=== PATIENT | male | born 1955 | race Hispanic/Latino ===

== ENCOUNTER 2021-07-14 06:14 | Day surgery (SDC) | payer OTHER ==
[2021-07-12 09:41] LABS: CREATININE 1.4 mg/dL (0.5-1.5); POTASSIUM 4.4 mmol/L (3.5-5.1)
[2021-07-13 09:46] VITALS: BP 156/82
[~2021-07-14] VITALS: Ht 167.6 cm; Wt 112.7 kg
[2021-07-14] VITALS (16 sets, daily range): BP systolic 135–158; BP diastolic 72–92
[~2021-07-14 06:14] MED LIST: GABA-529 PO; LISI20TA24 PO; PRAZOSIN PO; TRAZ-187 PO; [UNRECOGNIZED DRUG - OTHER] PO
[2021-07-14] MEDS ORDERED: LACTATED RINGERS 1000ML 1,000 ML IV ONE (06:27)
[2021-07-14] MEDS ORDERED: CLINDAMYCIN IVPB 900MG/50ML 50 ML IV ONE (06:29)
[2021-07-14] MEDS ORDERED: CEFAZOLIN SODIUM 1 GM VIAL IVP ONE (08:00)
[2021-07-14] MEDS ORDERED: PROPOFOL 10 MG/ML 20ML VIAL IV ONE (08:34)
[2021-07-14] MEDS ORDERED: MIDAZOLAM HCL 1 MG/ML 2ML VIAL ONE (08:34)
[2021-07-14] MEDS ORDERED: LIDOCAINE PF 100MG/5ML (2%) SYRINGE 5ML ONE (08:34)
[2021-07-14] MEDS ORDERED: FENTANYL CITRATE PF 50 MCG/1 ML 2ML VIAL ONE (08:43)
[2021-07-14] MEDS ORDERED: SUCCINYLCHOLINE CHLORIDE 20 MG/ML 10 ML VIAL ONE (08:47)
[2021-07-14] MEDS ORDERED: ROCURONIUM 10MG/1ML SYR 10 MG/ML ML ONE (08:47)
[2021-07-14] MEDS ORDERED: EPHEDRINE SULFATE 50 MG/ML AMPULE ONE (08:54)
[2021-07-14] MEDS ORDERED: NEOSTIGMINE 5MG/5ML SYR IV ONE (09:25)
[2021-07-14] MEDS ORDERED: ONDANSETRON 4MG INJ ONE (09:26)
[2021-07-14] MEDS ORDERED: GLYCOPYRROLATE 1 MG/5 ML SYRINGE ONE (09:26)
[2021-07-14] MEDS ORDERED: ACET-2079 PO (09:46)
[2021-07-14] MEDS ORDERED: IBUP-2070 PO (09:46)
[2021-07-14] MEDS ORDERED: CLIN-141 PO (09:46)
[2021-07-14] MEDS ORDERED: KETOROLAC 30MG VIAL (30MG/ML) ONE (09:55)
== END 2021-07-14 11:22 | disposition home or self-care (01) ==
LOC: DAH 06:14
PROVIDERS: ATTEND Orthopaedic Surgery
DX: M23.321 Other meniscus derangements, posterior horn of medial meniscus, right knee (principal); J44.9 Chronic obstructive pulmonary disease, unspecified; I10 Essential (primary) hypertension; E66.9 Obesity, unspecified; Z98.890 Other specified postprocedural states; Z88.8 Allergy status to other drugs, medicaments and biological substances; Z88.0 Allergy status to penicillin; Z87.891 Personal history of nicotine dependence; Z82.49 Family history of ischemic heart disease and other diseases of the circulatory system; Z83.3 Family history of diabetes mellitus; Z80.9 Family history of malignant neoplasm, unspecified
CPT/HCPCS: 29881; 36415; 80048; 87635; A4215; A4221; A4222; A4223; A4649; A4663; A4930; A5120; A6223; C9803; J0330; J1885; J2001; J2250; J2405; J2704; J2710; J3010; J3490 ×3; J7120 ×2

== ENCOUNTER 2022-03-11 02:20 | Observation (INO) | payer OTHER ==
[~2022-03-11] VITALS: Ht 167.6 cm; Wt 107.2 kg
[~2022-03-11 02:20] MED LIST changes: +ASPI-1005 PO; +ATOR40TA69 PO; +CLOP-31 PO; -LISI20TA24 PO; +METO50TA9 PO; -PRAZOSIN PO
[2022-03-11 03:26] LABS: BASOPHILS % (AUTO) 0.4 % (0.0-5.0); EOSINOPHILS % (AUTO) 2.9 % (0.0-8.0); HEMATOCRIT 41.4 % (42-54); LYMPHOCYTES % (AUTO) 23.8 % (21.0-51.0); MEAN CORPUSCULAR HEMOGLOBIN 28.4 pg (27.0-33.0); MEAN CORPUSCULAR HGB CONC 32.4 g/dL (32.0-36.0); MEAN CORPUSCULAR VOLUME 87.7 fL (79-99); MONOCYTES % (AUTO) 6.3 % (3.0-13.0); NEUTROPHILS % (AUTO) 66.3 % (40.0-77.0); PLATELET COUNT (AUTO) 336 K/uL (130-400); RED BLOOD CELL COUNT(AUTO) 4.72 MIL/uL (4.50-6.20); RED CELL DISTRIBUTION WIDTH 12.5 % (11.0-15.5); WHITE BLOOD COUNT (AUTO) 6.9 K/uL (4.8-10.8)
[2022-03-11 03:34] LABS: B-TYPE NATRIURETIC PEPTIDE 422 pg/mL (0-100); CREATININE 1.2 mg/dL (0.5-1.5); POTASSIUM 4.5 mmol/L (3.5-5.1); TOTAL PROTEIN, SERUM 6.3 g/dL (6.0-8.3)
[2022-03-11] MEDS ORDERED: HYDRALAZINE 20MG/ML VIAL IV ONE (04:00)
[2022-03-11] MEDS ORDERED: ASPIRIN 81MG CHEW TAB ONE (04:34)
[2022-03-11] MEDS ORDERED: ASPIRIN 81MG CHEW TAB PO ONE (05:00)
[2022-03-11] MEDS ORDERED: ENOXAPARIN SODIUM 1 MG/KG SQ STA (05:32)
[2022-03-11] MEDS ORDERED: FUROSEMIDE 40MG VIAL IV STA (05:48)
[2022-03-11] MEDS ORDERED: FUROSEMIDE 20MG VIAL ONE (05:59)
[2022-03-11] MEDS ORDERED: CLINDAMYCIN 150 MG CAP PO ONE (06:00)
[2022-03-11] MEDS ORDERED: SULFAMETHOX-TMP DS 800/160 TAB PO SCH (06:00)
[2022-03-11] MEDS ORDERED: MORPHINE 2 MG SYG IVP PRN (07:30)
[2022-03-11] MEDS ORDERED: NITROGLYCERIN 0.4 MG SL TAB SL PRN (07:30)
[2022-03-11] MEDS ORDERED: ESCI-8 PO (07:55)
[2022-03-11] MEDS ORDERED: GABA-533 PO (07:55)
[2022-03-11] MEDS ORDERED: IPRATROPIUM 0.5 MG/2.5 ML INH IH PRN (08:00)
[2022-03-11 08:44] LABS: PROTHROMBIN TIME 10.9 SEC (9.6-11.6)
[2022-03-11 08:45] LABS: APPEARANCE,URINE CLEAR (CLEAR); BILIRUBIN,URINE NEGATIVE (NEGATIVE); COLOR,URINE COLORLESS (YELLOW); GLUCOSE, URINE (UA) NEGATIVE (NEGATIVE); KETONES,URINE NEGATIVE (NEGATIVE); LEUKOCYTE ESTERASE ,URINE NEGATIVE Leu/uL (NEGATIVE); NITRATE,URINE NEGATIVE (NEGATIVE); OCCULT BLOOD,URINE NEGATIVE (NEGATIVE); PROTEIN,URINE NEGATIVE (NEGATIVE); UROBILINOGEN,URINE 0.2 mg/dL (0.2-1.0)
[2022-03-11 08:46] LABS: PARTIAL THROMBOPLASTIN TIME 25.5 SEC (26.3-35.5)
[2022-03-11 08:56] LABS: AMPHET/METH SCREEN,URINE NEGATIVE (NEGATIVE); BARBITURATE SCREEN, URINE NEGATIVE (NEGATIVE); BENZODIAZEPINES SCREEN,URINE NEGATIVE (NEGATIVE); CANNABINOID SCREEN,URINE NEGATIVE (NEGATIVE); COCAINE SCREEN,URINE NEGATIVE (NEGATIVE); OPIATE SCREEN,URINE NEGATIVE (NEGATIVE); PHENCYCLIDINE SCREEN,URINE NEGATIVE (NEGATIVE)
[2022-03-11] MEDS: PANTOPRAZOLE 40 MG TAB DR PO SCH (09:14)
[2022-03-11] MEDS: ASPIRIN 81 MG EC TAB PO SCH (09:14)
[2022-03-11] MEDS: Vitamin B Complex/Vit C/Folic Acid PO SCH (09:14)
[2022-03-11 09:15] LABS: CRP QUANTITATIVE < 2.00 mg/L (0.00-9.0)
[2022-03-11] MEDS: CLOPIDOGREL 75MG TAB PO SCH (09:15)
[2022-03-11 09:16] LABS: POTASSIUM 3.9 mmol/L (3.5-5.1)
[2022-03-11 09:17] LABS: CREATININE 1.2 mg/dL (0.5-1.5); MAGNESIUM 1.8 mg/dL (1.80-2.40)
[2022-03-11] MEDS ORDERED: SODIUM CHLORIDE 3% FOR INHALATION 4 ML/AMP VIAL.NEB IH ONE ×3 (09:37→18:31)
[2022-03-11] MEDS: POTASSIUM CHLORIDE 10MEQ SR TAB PO SCH (10:05)
[2022-03-11] MEDS: MAGNESIUM 2GM PREMIX 50ML 50 ML IV SCH ×2 (10:06→22:56)
[2022-03-11] MEDS: METOPROLOL SUCCINATE 25 MG TAB.SR.24H PO SCH (10:06)
[2022-03-11] MEDS ORDERED: FUROSEMIDE 20MG VIAL IV SCH (12:00)
[2022-03-11 12:09] VITALS: BP 148/87
[2022-03-11 15:54] VITALS: BP 122/84
[2022-03-11 16:00] VITALS: BP 148/87
[2022-03-11] MEDS ORDERED: NON-FORMULARY MEDICATION 1 EACH (Gabapentin 300 MG) PO PRN (18:00)
[2022-03-11 20:00] VITALS: BP 115/75
[2022-03-11] MEDS: FUROSEMIDE 40MG VIAL IV SCH (20:23)
[2022-03-11] MEDS: GABAPENTIN 100 MG CAPSULE PO SCH (20:24)
[2022-03-11] MEDS: HEPARIN 5,000 UNIT VIAL SQ SCH (20:26)
[2022-03-11] MEDS ORDERED: TRAZODONE HCL 100 MG TABLET PO SCH (21:00)
[2022-03-11] MEDS ORDERED: ATORVASTATIN 40 MG TABLET PO SCH ×2 (21:00)
[2022-03-12] VITALS: BP 121/66
[2022-03-12] MEDS ORDERED: POTASSIUM CHLORIDE 10MEQ SR TAB PO SCH (01:00)
[2022-03-12 04:00] VITALS: BP 108/56
[2022-03-12 05:08] LABS: BASOPHILS % (AUTO) 0.4 % (0.0-5.0); EOSINOPHILS % (AUTO) 2.8 % (0.0-8.0); HEMATOCRIT 41.8 % (42-54); LYMPHOCYTES % (AUTO) 22.4 % (21.0-51.0); MEAN CORPUSCULAR HEMOGLOBIN 28.2 pg (27.0-33.0); MEAN CORPUSCULAR HGB CONC 32.5 g/dL (32.0-36.0); MEAN CORPUSCULAR VOLUME 86.7 fL (79-99); MONOCYTES % (AUTO) 7.5 % (3.0-13.0); NEUTROPHILS % (AUTO) 66.6 % (40.0-77.0); PLATELET COUNT (AUTO) 341 K/uL (130-400); RED BLOOD CELL COUNT(AUTO) 4.82 MIL/uL (4.50-6.20); RED CELL DISTRIBUTION WIDTH 12.5 % (11.0-15.5); WHITE BLOOD COUNT (AUTO) 7.8 K/uL (4.8-10.8)
[2022-03-12 05:27] LABS: ALBUMIN 2.9 g/dL (3.5-5.0); CREATININE 1.3 mg/dL (0.5-1.5); MAGNESIUM 2.3 mg/dL (1.80-2.40); POTASSIUM 4.4 mmol/L (3.5-5.1); TOTAL PROTEIN, SERUM 6.8 g/dL (6.0-8.3)
[2022-03-12 07:25] VITALS: BP 93/60
[2022-03-12] MEDS ORDERED: METOPROLOL SUCCINATE 50 MG TAB.SR.24H PO SCH (09:00)
[2022-03-12] MEDS ORDERED: CITALOPRAM 20 MG TABLET PO SCH (09:00)
[2022-03-12] MEDS ORDERED: CLOPIDOGREL 75MG TAB PO SCH (09:00)
[2022-03-12] MEDS ORDERED: ASPIRIN 81MG CHEW TAB PO SCH (09:00)
[2022-03-12] MEDS: PANTOPRAZOLE 40 MG TAB DR PO SCH (09:06)
[2022-03-12] MEDS: ASPIRIN 81 MG EC TAB PO SCH (09:06)
[2022-03-12] MEDS: Vitamin B Complex/Vit C/Folic Acid PO SCH (09:07)
[2022-03-12] MEDS: GABAPENTIN 100 MG CAPSULE PO SCH ×2 (09:07→13:38)
[2022-03-12] MEDS: CLOPIDOGREL 75MG TAB PO SCH (09:07)
[2022-03-12] MEDS: METOPROLOL SUCCINATE 25 MG TAB.SR.24H PO SCH (09:07)
[2022-03-12] MEDS: FUROSEMIDE 40MG VIAL IV SCH (09:08)
[2022-03-12] MEDS: HEPARIN 5,000 UNIT VIAL SQ SCH (09:16)
[2022-03-12] MEDS ORDERED: FUROSEMIDE 20 MG TABLET PO SCH (09:30)
[2022-03-12] MEDS: POTASSIUM CHLORIDE 10MEQ SR TAB PO SCH (10:00)
[2022-03-12 11:25] VITALS: BP 96/60
[2022-03-12] MEDS ORDERED: FURO20TA6 PO (14:23)
== END 2022-03-12 14:41 | disposition home or self-care (01) ==
LOC: EDH 02:20 → EDHIP 07:29 → INTOOBSV 07:29 → 4CH 11:49
PROVIDERS: ADMIT Hospitalist; ATTEND Hospitalist
DX: J96.01 Acute respiratory failure with hypoxia (principal); Z20.822 Contact with and (suspected) exposure to COVID-19; I11.0 Hypertensive heart disease with heart failure; I50.43 Acute on chronic combined systolic (congestive) and diastolic (congestive) heart failure; J81.1 Chronic pulmonary edema; I21.4 Non-ST elevation (NSTEMI) myocardial infarction; E78.5 Hyperlipidemia, unspecified; R79.89 Other specified abnormal findings of blood chemistry; E66.9 Obesity, unspecified; G62.9 Polyneuropathy, unspecified; F43.10 Post-traumatic stress disorder, unspecified; I25.10 Atherosclerotic heart disease of native coronary artery without angina pectoris; E78.00 Pure hypercholesterolemia, unspecified; F41.8 Other specified anxiety disorders; G47.00 Insomnia, unspecified; Z79.899 Other long term (current) drug therapy; Z87.891 Personal history of nicotine dependence; Z91.119 Patient's noncompliance with dietary regimen due to unspecified reason; Z95.5 Presence of coronary angioplasty implant and graft
CPT/HCPCS: 99291; 96365; 70450; 71045 ×2; 96366 ×2; 87635; 96375; 96376 ×2; 84443; 82550 ×2; 83735 ×3; 83874 ×2; 84484 ×3; 80053 ×2; 83880; 80305; 85025 ×2; 85610; 85730; 85651; 86140; 36415 ×2; 93005; 84145; 84132; 81003; 96372 ×2; 94664; 94640 ×3; J3475 ×2; J1940 ×4; J1644 ×2; G0378; 80048

== ENCOUNTER → 2022-04-04 | Outpatient (CLI) | payer MEDICARE, SELFPAY ==
[~2022-04-04] MED LIST changes: +ESCI-8 PO; +FURO20TA6 PO; +GABA-533 PO
[2022-04-04 13:15] LABS: CREATININE 1.2 mg/dL (0.5-1.5); POTASSIUM 4.2 mmol/L (3.5-5.1)
== END | disposition home or self-care (01) ==
LOC: LAB 09:48
PROVIDERS: ATTEND Internal Medicine Cardiovascular Disease
DX: I10 Essential (primary) hypertension (principal); I21.3 ST elevation (STEMI) myocardial infarction of unspecified site
CPT/HCPCS: 36415; 80048; 83880

== ENCOUNTER → 2022-04-26 | Outpatient (CLI) | payer OTHER | END | disposition home or self-care (01) | LOC: SHCH 12:57 | PROVIDERS: ATTEND Internal Medicine Cardiovascular Disease | DX: I11.0 Hypertensive heart disease with heart failure (principal); I50.20 Unspecified systolic (congestive) heart failure; I31.39 Other pericardial effusion (noninflammatory); I34.0 Nonrheumatic mitral (valve) insufficiency; I50.21 Acute systolic (congestive) heart failure | CPT/HCPCS: 93306 ==

== ENCOUNTER → 2022-04-28 | Outpatient (CLI) | payer OTHER ==
[~2022-04-28] MED LIST changes: +REGADENOSON 0.4 MG/5 ML PF SYG IVP SCH
== END | disposition home or self-care (01) ==
LOC: SHCH 07:53
PROVIDERS: ATTEND Internal Medicine Cardiovascular Disease
DX: I25.10 Atherosclerotic heart disease of native coronary artery without angina pectoris (principal); I11.0 Hypertensive heart disease with heart failure; I50.20 Unspecified systolic (congestive) heart failure; Z95.5 Presence of coronary angioplasty implant and graft; Z79.82 Long term (current) use of aspirin; Z79.899 Other long term (current) drug therapy; Z79.02 Long term (current) use of antithrombotics/antiplatelets
CPT/HCPCS: 78452; 96374; 93017; J2785; A9500 ×2

== ENCOUNTER 2022-10-09 10:38 | Emergency (ER) | payer MEDICARE, OTHER ==
[~2022-10-09] VITALS: Ht 167.6 cm; Wt 113.4 kg
[~2022-10-09 10:38] MED LIST changes: -REGADENOSON 0.4 MG/5 ML PF SYG IVP SCH
[2022-10-09 11:27] LABS: BASOPHILS % (AUTO) 0.4 % (0.0-5.0); EOSINOPHILS % (AUTO) 2.7 % (0.0-8.0); LYMPHOCYTES % (AUTO) 26.2 % (21.0-51.0); MEAN CORPUSCULAR HEMOGLOBIN 28.2 pg (27.0-33.0); MEAN CORPUSCULAR HGB CONC 32.9 g/dL (32.0-36.0); MEAN CORPUSCULAR VOLUME 85.6 fL (79-99); MONOCYTES % (AUTO) 6.4 % (3.0-13.0); PLATELET COUNT (AUTO) 202 K/uL (130-400); RED BLOOD CELL COUNT(AUTO) 5.61 MIL/uL (4.50-6.20); RED CELL DISTRIBUTION WIDTH 12.9 % (11.0-15.5); WHITE BLOOD COUNT (AUTO) 7.9 K/uL (4.8-10.8)
[2022-10-09 11:41] LABS: CREATININE 1.3 mg/dL (0.5-1.5); POTASSIUM 4.3 mmol/L (3.5-5.1)
[2022-10-09 11:45] LABS: ALBUMIN 3.4 g/dL (3.5-5.0)
[2022-10-09 13:06] VITALS: BP 160/98
== END 2022-10-09 13:41 | disposition home or self-care (01) ==
LOC: EDH 10:38
DX: R42 Dizziness and giddiness (principal); I10 Essential (primary) hypertension; E78.00 Pure hypercholesterolemia, unspecified; Z88.0 Allergy status to penicillin; Z79.899 Other long term (current) drug therapy
CPT/HCPCS: 36415; 71045; 80053; 83880; 84443; 84484; 85025; 93005

== ENCOUNTER 2023-01-23 13:19 | Emergency (ER) | payer OTHER ==
[~2023-01-23] VITALS: Ht 170.2 cm; Wt 114.3 kg
[~2023-01-23 13:19] MED LIST changes: -GABA-533 PO; +GABA-534 PO
[2023-01-23 14:00] LABS: HEMATOCRIT 45.6 % (42-54); MEAN CORPUSCULAR HEMOGLOBIN 28.6 pg (27.0-33.0); MEAN CORPUSCULAR HGB CONC 33.1 g/dL (32.0-36.0); MEAN CORPUSCULAR VOLUME 86.4 fL (79-99); PLATELET COUNT (AUTO) 178 K/uL (130-400); RED BLOOD CELL COUNT(AUTO) 5.28 MIL/uL (4.50-6.20); RED CELL DISTRIBUTION WIDTH 12.6 % (11.0-15.5); WHITE BLOOD COUNT (AUTO) 7.1 K/uL (4.8-10.8)
[2023-01-23 14:10] LABS: CREATININE 1.4 mg/dL (0.5-1.5); POTASSIUM 3.8 mmol/L (3.5-5.1)
[2023-01-23 14:24] LABS: BASOPHILS % (MANUAL) 1 % (0-2); EOSINOPHILS % (MANUAL) 1 % (1-6); LYMPHOCYTES % (MANUAL) 25 % (22-44); MONOCYTES % (MANUAL) 3 % (2-9); SEGMENTED NEUTROPHILS % 70 % (40-70); TOTAL CELLS COUNTED 100
[2023-01-23 14:30] LABS: MAN.DIFF COMMENT-IMPRESSION MANUAL DIFFERENTIAL; PLATELET MORPHOLOGY COMMENT ADEQUATE; WBC MORPHOLOGY SMUDGE CELLS 1+
[2023-01-23] MEDS ORDERED: KETOROLAC 15MG/ML VIAL (15MG/ML) IV ONE (15:30)
[2023-01-23] MEDS ORDERED: AZIT250T9 PO (16:22)
[2023-01-23] MEDS ORDERED: IBUP-2070 PO (16:22)
[2023-01-23] MEDS ORDERED: CEFTRIAXONE 1G VIAL IVPB ONE (16:30)
[2023-01-23] MEDS ORDERED: DEXAMETHASONE SOD PHOSPHATE 4 MG/ML 1ML VIAL IVP ONE (16:30)
[2023-01-23 16:32] VITALS: BP 135/78; PULSE 65; RESP 16; O2SAT 98
[2023-01-23 16:37] LABS: SARS-CoV-2, RNA, NAAT NEGATIVE SARS CoV-2 (NEGATIVE)
[2023-01-23 16:48] LABS: INFLUENZA TYPE A Negative For Type A (NEGATIVE); INFLUENZA TYPE B Negative For Type B (NEGATIVE)
== END 2023-01-23 16:37 | disposition home or self-care (01) ==
LOC: EDH 13:19
DX: J98.4 Other disorders of lung (principal); R06.02 Shortness of breath; E78.00 Pure hypercholesterolemia, unspecified; I10 Essential (primary) hypertension; Z79.02 Long term (current) use of antithrombotics/antiplatelets; Z79.82 Long term (current) use of aspirin; Z79.899 Other long term (current) drug therapy; Z88.0 Allergy status to penicillin; Z20.822 Contact with and (suspected) exposure to COVID-19
CPT/HCPCS: 99285; 96374; 71250; 71045; 96375; 87635; 84484; 80048; 85025; 87804 ×2; 36415; 93005; J1100; J0696; J1885

== ENCOUNTER 2024-10-30 05:36 | Day surgery (SDC) | payer OTHER ==
[2024-10-28 10:30] LABS: IMMATURE GRANULOCYTE ABSOLUTE 0.03 K/uL (0-1); NUCLEATED RED BLOOD CELLS 0.0 % (0.0-0.19); PLATELET COUNT (AUTO) 179 K/uL (130-400); RED BLOOD CELL COUNT(AUTO) 5.54 MIL/uL (4.50-6.20); RED CELL DISTRIBUTION WIDTH 12.6 % (11.0-15.5); WHITE BLOOD COUNT (AUTO) 9.7 K/uL (4.8-10.8)
[2024-10-28 10:36] LABS: APPEARANCE,URINE CLEAR (CLEAR); GLUCOSE, URINE (UA) NEGATIVE (NEGATIVE); LEUKOCYTE ESTERASE ,URINE NEGATIVE Leu/uL (NEGATIVE); NITRATE,URINE NEGATIVE (NEGATIVE); OCCULT BLOOD,URINE NEGATIVE (NEGATIVE)
[2024-10-28 10:38] LABS: CREATININE 1.3 mg/dL (0.5-1.3); GLOMERULAR FILTR. RATE CALC 60.0 mL/min (>90); GLUCOSE,RANDOM 97.0 mg/dL (70-105); SODIUM SERUM 139.0 mmol/L (136-145); UREA NITROGEN, BLOOD 20.0 mg/dL (7-18)
[2024-10-28 10:42] LABS: ADD UA MICROSCOPIC YES
[2024-10-28 10:45] LABS: INR 1.01 (0.85-1.15)
--- NOTE | 2024-10-28 10:46 | EKG ---
[facility] Test Date: 2024-10-28 Test Time: 10:18:02 Pat Name: LISSETH WILLIS Department: [facility] Room: Gender: M Telephone Directory Deliverer: [id number] : 1955 Requested By: RHIANNA GOTTI Order Number: [id number] Reading MD: Kirti Joshi Measurements Intervals [place] Rate: 56 P: 57 ND: 170 QRS: 99 QRSD: 94 T: 111 QT: 455 QTc: 451 Interpretive Statements Sinus rhythm Ventricular premature complex Probable anterolateral infarct, age indeterm Compared to ECG 01/23/2023 13:24:39 Ventricular premature complex(es) now present Myocardial infarct finding still present Electronically Signed On 10-28-2024 12:12:34 CDT by Kirti Joshi Please click the below link to view image of tracing.
[2024-10-28 10:52] VITALS: BP 151/81; PULSE 60; RESP 16; TEMP 97.9
--- NOTE | 2024-10-28 16:22 | HMCIMG ---
EXAM: CR Chest, 1 View. CLINICAL HISTORY: PRE OP COMPARISON: X-ray chest 01/23/2023 FINDINGS: LUNGS: There is no mass, infiltrate, or acute pulmonary abnormality. PLEURAL SPACES: No pleural effusion or pneumothorax. MEDIASTINUM: The cardiomediastinal silhouette is within normal limits. BONES: No acute osseous abnormality. IMPRESSION: No acute cardiopulmonary pathology is evident. No significant change /[place]
--- NOTE | 2024-10-29 10:30 | NUR ---
RE: LABS REPORTED BMP RESULTS TO SARAH EASLEY. NO NEW ORDERS RECEIVED.
[~2024-10-30] VITALS: Ht 167.6 cm; Wt 111.0 kg
[2024-10-30] VITALS (11 sets, daily range): BP systolic 113–145; BP diastolic 55–85; PULSE 49–62; RESP 11–20; TEMP 97.2–97.3
[~2024-10-30 05:36] MED LIST changes: +ATOR-2 PO; -ATOR40TA69 PO; -CLOP-31 PO; -ESCI-8 PO; -GABA-534 PO; +LOSA25TA41 PO; +NITR0.4T50 SL; +SILD100T PO; -[UNRECOGNIZED DRUG - OTHER] PO
[2024-10-30] MEDS: 0.9%NACL 1000ML 1,000 ML IV SCH (06:49)
[2024-10-30] MEDS ORDERED: LIDOCAINE HCL 400MG/20ML VIAL ONE (07:15)
[2024-10-30] MEDS ORDERED: IOHEXOL 350 MG/ML 100ML INFUS..BTL IV ONE (07:15)
[2024-10-30] MEDS ORDERED: HEParin-NS 1,000 UNIT/500 ML 1,000 ML IV ONE (07:15)
[2024-10-30] MEDS ORDERED: NITROGLYCERIN 50MG VIAL ONE (07:16)
[2024-10-30] MEDS ORDERED: MIDAZOLAM HCL 1 MG/ML 2ML VIAL ONE (07:37)
--- NOTE | 2024-10-30 08:08 | PRN ---
Cath Procedure Report CATH PROCEDURE REPORT CARDIAC CATHETERIZATION REPORT Date of Service: Oct 30, 2024 After informed consent the patient was prepped and draped in the usual fashion. He received 1 mg of Versed for conscious sedation. He received 15 cc of xylocaine in the right inguinal area. A six [place] sheath was introduced into the right femoral artery using modified Seldinger technique. Pigtail catheter was then advanced over guidewire across the aortic valve. Wire was removed and hemodynamics measured. A pullback with continuous hemodynamic monitoring was performed and catheter was removed. Left ventricular end-diastolic pressure was elevated and the patient received 20 mg of furosemide intravenously. A Maryann four right six [place] diagnostic catheter was then advanced over guidewire to the aortic root. Wire was removed and catheter engaged into the [place] right coronary artery. Right coronary artery was visualized in multiple planes the catheter was removed. A Maryann four left six [place] diagnostic catheter was advanced over guidewire to the aortic root. Wire was removed and catheter engaged in the left main coronary artery left coronary system was visualized multiple planes the catheter was removed. A sheathogram performed and six [place] Angio-Seal closure device applied. The entire procedure was well tolerated without complications. Findings: The left ventricular end-diastolic pressure was 26 mm Hg. There was no evidence of aortic stenosis. The right coronary artery is a dominant vessel it is free of obstruction. The PDA has a 60% ostial stenosis the posterolateral branches free of obstruction. Left main coronary artery is free of obstruction. The left anterior descending artery has a 20% proximal stenosis there was a patent mid LAD stent with a 20% InStent restenosis. The circumflex artery is a large vessel with several large branching obtuse marginal arteries. The circumflex artery is free of obstruction. A branch of the 1st obtuse marginal artery has a 30% proximal stenosis. LV ejection fraction is 25% by echo. Summary: Patent LAD stent nonobstructive disease in the PDA and branch of the obtuse marginal artery. Medical management advised. Report dictated by RHIANNA Hampton MD, MD Oct 30, 2024 08:08
[2024-10-30] MEDS ORDERED: DAPA10TA PO (08:15)
[2024-10-30] MEDS ORDERED: FURO40TA5 PO (08:15)
[2024-10-30] MEDS ORDERED: NITROGLYCERIN 0.4 MG SL TAB SL SCH (08:30)
--- NOTE | 2024-10-30 08:35 | NUR ---
URINARY: VOIDED 400CC CLEAR YELLOW COLOR URINE PER URINAL WITHOUT DIFFICULTY.
[2024-10-30] MEDS ORDERED: ASPIRIN 81MG CHEW TAB PO SCH (09:00)
--- NOTE | 2024-10-30 09:15 | NUR ---
URINARY: VOIDED CLEAR YELLOW COLOR URINE PER URINAL WITHOUT DIFFICULTY.
--- NOTE | 2024-10-30 12:00 | NUR ---
urinary: voided 375 cc clear yellow color urine per urinal without difficulty.
== END 2024-10-30 12:50 | disposition home or self-care (01) ==
LOC: DAH 05:36
PROVIDERS: ATTEND Internal Medicine Cardiovascular Disease
DX: I25.10 Atherosclerotic heart disease of native coronary artery without angina pectoris (principal); T82.855A Stenosis of coronary artery stent, initial encounter; I11.0 Hypertensive heart disease with heart failure; I50.42 Chronic combined systolic (congestive) and diastolic (congestive) heart failure; I25.2 Old myocardial infarction; J44.9 Chronic obstructive pulmonary disease, unspecified; I49.3 Ventricular premature depolarization; I25.5 Ischemic cardiomyopathy; R06.09 Other forms of dyspnea; E78.5 Hyperlipidemia, unspecified; Z79.82 Long term (current) use of aspirin; Z79.899 Other long term (current) drug therapy; Y71.2 Prosthetic and other implants, materials and accessory cardiovascular devices associated with adverse incidents
CPT/HCPCS: 80048; 83880; 85025; 85610; 85730; 81001; 36415; 71045; 93005; 93458; 99156; 99157; C1894 ×2; C1760; J3490 ×2; J7030; J2250; J1938; J1644; Q9967; A4215; A4222; A4221; A4663; A4216; A4606; A4223 ×2